=== PATIENT | female | born 1965 | race Caucasian/White ===

== ENCOUNTER → 2016-05-29 | Outpatient (CLI) | payer BC ==
[~2016-05-29] MED LIST: LORA-741 PO
--- NOTE | 2016-05-29 12:01 | DIAGNOSTIC IMAGING REPORT ---
LUMBAR SPINE 5 VIEWS CLINICAL HISTORY: Low back pain. FINDINGS: 5 views of the lumbar spine are correlated with abdominal CT dated 12/27/2014. The skeletal structures appear osteopenic. There is no radiographic evidence of fracture or malalignment. Vertebral body height and alignment are maintained. The transverse and spinous processes are intact. There is no evidence of spondylolysis. The intervertebral disc spaces are well-maintained. The visualized bony pelvis appears intact. Sclerotic change is seen involving the sacroiliac joints. Suture material is noted in the right lower quadrant. There is a nonobstructed abdominal bowel gas pattern. Numerous phleboliths are identified in the pelvis. IMPRESSION: Unremarkable radiographic evaluation of the lumbosacral spine. Electronically signed by: Clyde Ibrahim M.D. 05/29/2016 11:59 AM Dictated Date/Time: 05/29/2016 11:58 AM
== END | disposition home or self-care (01) ==
LOC: C.RDSM 11:27
PROVIDERS: ATTEND Family Medicine
DX: M54.5 Low back pain (principal)

== ENCOUNTER → 2016-10-08 | Outpatient (CLI) | payer BC ==
[~2016-10-08] MED LIST changes: +GADAVIST IV PRN
--- NOTE | 2016-10-08 11:40 | DIAGNOSTIC IMAGING REPORT ---
FLUOROSCOPICALLY GUIDED LEFT HIP ARTHROGRAM PRIOR TO MRI CLINICAL HISTORY: Left hip pain and instability. FLUOROSCOPY TIME: 20 seconds. FINDINGS: The procedure, risks and benefits were discussed with the patient and informed written consent was obtained. The procedure was performed by Dr. Crowley. A timeout was performed. Skin overlying the left hip was prepped and draped in sterile fashion and local anesthesia was achieved with 1% lidocaine. Under intermittent fluoroscopic guidance, a 3 and 1/2 inch spinal needle was directed into the left hip joint. Positioning within the joint space was confirmed with injection a small amount of contrast. At this time, 11 cc of a mixture of 0.05 cc of Gadavist, 10 cc of Optiray 300 cc of normal saline was injected into the left hip joint. The needle was removed. The patient tolerated the procedure well and no immediate complications were evident. The patient was transported to MRI. IMPRESSION: Fluoroscopically guided left hip arthrogram prior to MRI. Electronically signed by: Oscar Crowley M.D. 10/08/2016 11:39 AM Dictated Date/Time: 10/08/2016 11:37 AM
--- NOTE | 2016-10-08 11:51 | DIAGNOSTIC IMAGING REPORT ---
MR ARTHROGRAM OF THE LEFT HIP CLINICAL HISTORY: Left hip pain. Instability. COMPARISON STUDY: Pelvic CT dated 12/27/2014. TECHNIQUE: Following the intrathecal administration of gadolinium contrast, MR arthrogram of the left hip was performed utilizing various T1 and T2-weighted sequences in the axial, sagittal, and coronal planes. Note that interpretation is significantly suboptimal without plain film correlate. FINDINGS: There is no MRI evidence of fracture or osteonecrosis involving the left proximal femur. The visualized left bony pelvis appears intact. The joint space is well distended with intra-articular contrast. There is a tear of the anterior/superior labrum. No joint body is suggested. The musculature surrounding the left hip and the visualized pelvis is normal in bulk and signal intensity. There is no evidence of greater trochanteric or iliopsoas bursitis. The origin of the hamstrings tendon appears intact. IMPRESSION: 1. No acute bony abnormality is seen in the left hip. 2. There is an anterior/superior labral tear. Dictated: 10/08/2016 11:42 AM Transcribed: 10/08/2016 11:51 AM DAMIAN_Armando Electronically signed by: Clyde Ibrahim M.D. 10/08/2016 11:53 AM Dictated Date/Time: 10/08/2016 11:42 AM
== END | disposition home or self-care (01) ==
LOC: C.MRIBC 09:52
PROVIDERS: ATTEND Family Medicine
DX: M25.552 Pain in left hip (principal); M25.352 Other instability, left hip

== ENCOUNTER → 2016-10-21 | Outpatient (CLI) | payer BC ==
[~2016-10-21] MED LIST changes: -GADAVIST IV PRN
== END | disposition home or self-care (01) ==
LOC: C.RDSM 08:00
PROVIDERS: ATTEND Physical Medicine & Rehabilitation Sports Medicine
DX: M25.552 Pain in left hip (principal)

== ENCOUNTER → 2016-12-12 | Outpatient (CLI) | payer BC ==
--- NOTE | 2016-12-15 12:30 | MAMMOGRAPHY REPORT ---
BILATERAL DIGITAL SCREENING MAMMOGRAM TOMOSYNTHESIS WITH CAD: 12/12/2016 CLINICAL HISTORY: Routine screening. Patient has no complaints. TECHNIQUE: Breast tomosynthesis in addition to standard 2D mammography was performed. Current study was also evaluated with a Computer Aided Detection (CAD) system. COMPARISON: Comparison is made to exams dated: 11/09/2015 mammogram, 10/04/2014 mammogram, 08/09/2013 ghis[facility]aine mogram, 08/05/2012 mammogram, 08/05/2011 ultrasound, and 08/05/2011 mammogram - [facility] nter. BREAST COMPOSITION: The tissue of both breasts is heterogeneously dense, which may obscure small mas ses. FINDINGS: No suspicious masses, calcifications, or areas of architectural distortion are noted in ei ther breast. There has been no significant interval change compared to prior exams. IMPRESSION: ACR BI-RADS CATEGORY 1: NEGATIVE There is no mammographic evidence of malignancy. A 1 year screening mammogram is recommended. The pa tient will receive written notification of the results. Approximately 10% of breast cancers are not detected with mammography. A negative mammographic report should not delay biopsy if a clinically suggestive mass is present. Zonia Lau M.D. ah/:12/12/2016 15:36:44 Fitness Assistant: Misti CARDONA(R)(M), [facility] letter sent: Normal 1/2 BI-RADS Code: ACR BI-RADS Category 1: Negative
== END | disposition home or self-care (01) ==
LOC: C.MAMM 08:37
PROVIDERS: ATTEND Physician Assistant
DX: Z12.31 Encounter for screening mammogram for malignant neoplasm of breast (principal)